=== PATIENT | male | born 1965 | race Caucasian/White ===

== ENCOUNTER 2019-01-09 07:18 | Day surgery (SDC) | payer OTHER ==
[2019-01-09] MEDS ORDERED: FENTAnyl 50 MCG/ML VIAL (09:16)
[2019-01-09] MEDS ORDERED: MIDAZOLAM 1 MG/ML 2 ML INJ ×3 (09:16→09:24)
== END 2019-01-09 12:47 | disposition home or self-care (01) ==
LOC: GIL 07:18
DX: Z12.11 Encounter for screening for malignant neoplasm of colon (principal); K64.8 Other hemorrhoids
CPT/HCPCS: 45378